=== PATIENT | female | born 1965 | race Caucasian/White ===

== ENCOUNTER → 2020-06-08 | Outpatient (CLI) | payer OTHER | LOC: MAMMO 14:20 | PROVIDERS: ATTEND Internal Medicine | DX: Z12.31 Encounter for screening mammogram for malignant neoplasm of breast (principal) | CPT/HCPCS: 77067 ==

== ENCOUNTER → 2020-07-06 | Outpatient (CLI) | payer OTHER | LOC: MAMMO 09:34 | PROVIDERS: ATTEND Internal Medicine | DX: R92.8 Other abnormal and inconclusive findings on diagnostic imaging of breast (principal) ==

== ENCOUNTER → 2024-04-22 | Outpatient (REF) | payer OTHER | LOC: RAD 13:33 | PROVIDERS: ATTEND Anesthesiology Addiction Medicine | DX: M54.12 Radiculopathy, cervical region (principal); M54.6 Pain in thoracic spine; M54.16 Radiculopathy, lumbar region | CPT/HCPCS: 72040; 72072; 72100 ==